=== PATIENT | female | born 1955 | race Caucasian/White ===

== ENCOUNTER 2017-08-26 07:41 | Day surgery (SDC) | payer OTHER ==
[~2017-08-26 07:41] MED LIST: CLONAZEPAM2 MG PO; HYOSCYAMINE0.125 M1 SL; IMODIUM PO; INTESTINEX1 CA1 PO; INTESTINEX680 MG PO; METFORMIN HYDRO25 GM PO; OXYC1TAB9 PO; PAXIL20 MG PO; PROTONIX40 MG PO; ZIAC 5-6.25 MG1 TAB PO
== END 2017-08-26 12:50 | disposition home or self-care (01) ==
LOC: AMB-ENDOS 07:41
DX: C20 Malignant neoplasm of rectum (principal); E11.9 Type 2 diabetes mellitus without complications; I10 Essential (primary) hypertension; E78.00 Pure hypercholesterolemia, unspecified; M06.89 Other specified rheumatoid arthritis, multiple sites; F32.89 Other specified depressive episodes; R50.82 Postprocedural fever

== ENCOUNTER 2018-09-29 09:10 | Day surgery (SDC) | payer OTHER | END 2018-09-29 13:40 | disposition home or self-care (01) | LOC: AMB-ENDOS 09:10 | DX: C20 Malignant neoplasm of rectum (principal) ==

== ENCOUNTER 2019-12-07 07:37 | Day surgery (SDC) | payer OTHER | END 2019-12-07 12:15 | disposition home or self-care (01) | LOC: AMB-ENDOS 07:37 | PROVIDERS: ATTEND Surgery | DX: K63.5 Polyp of colon (principal) ==